=== PATIENT | female | born 1995 | race Caucasian/White ===

== ENCOUNTER 2019-10-04 18:12 | Emergency (ER) | payer OTHER ==
[2019-10-04 19:47] LABS: ABS Basophils 0.1 10^3/ul (0-0.2); ABS Lymphocytes 2.1 10^3/ul (1.0-4.8); ABS Monocytes 0.6 10^3/ul (0-0.8); ABS Neutrophils 4.8 10^3/ul (1.5-7.7); Eosinophil % 0.3 %; Hematocrit 42 % (35-47); Hemoglobin 14.8 g/dL (12.0-16.0); Lymphocyte % 27.9 %; Mean Corpuscular HGB Conc 35 g/dL (31-36); Mean Corpuscular Hemoglobin 31 pg (27-31); Mean Corpuscular Volume 89 fL (80-97); Mean Platelet Volume 8.1 fL (7.4-10.4); Platelet Count 229 10^3/uL (150-450); Red Blood Count 4.71 10^6 /uL (3.70-4.87); Red Cell Distribution Width 13 % (10-15); White Blood Count 7.5 10^3/uL (3.5-10.8)
[2019-10-04 20:08] LABS: ALT 10 U/L (7-52); AST 15 U/L (13-39); Albumin 5.1 g/dL (3.2-5.2); Albumin/Globulin Ratio 1.8 (1-3); Alkaline Phosphatase 66 U/L (34-104); Anion Gap 8 mmol/L (2-11); BUN/Creatinine Ratio 11.5 (8-20); Blood Urea Nitrogen 9 mg/dL (6-24); C Reactive Protein < 1.00 mg/L (<8.01); CO2 Carbon Dioxide 28 mmol/L (22-32); Calcium 10.1 mg/dL (8.6-10.3); Chloride 103 mmol/L (101-111); EGFR African American 111.7 (>60); EGFR Non-African American 92.4 (>60); Globulin 2.8 g/dL (2-4); Glucose 95 mg/dL (70-100); Magnesium 1.9 mg/dL (1.9-2.7); Sodium 139 mmol/L (135-145); Total Protein 7.9 g/dL (6.4-8.9)
[2019-10-04] MEDS ORDERED: NS 0.9% 1000 ML** 1,000 ML IV ONE (20:10)
[2019-10-04] MEDS ORDERED: Meclizine TAB* 12.5 MG PO ONE (20:10)
--- NOTE | 2019-10-04 20:12 | ED ---
Dizziness - HPI Summary HPI Summary: This patient is a 24 y/o female presenting to [facility] c/o dizziness today. 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 She notes she sat down because she felt dizzy and lightheaded and everything felt heavy. Denies room spinning or head spinning sensation. Additionally patient reports a headache since 1200 today. Denies ear pain, tinnitus, sore throat, runny nose, cold symptoms. Patient currently states feeling better but still does not feel safe walking. Patient has never felt these symptoms in the past. PMHx: anxiety. Patient admits to rare alcohol use. Denies tobacco and drug use. Home Medications Medication Instructions Recorded Confirmed Type NK [No Home Medications Reported] 10/04/19 10/04/19 History - History Of Current Complaint Chief Complaint: EDDizziness Stated Complaint: DIZZY/WEAKNESS PER FATHER Time Seen by Provider: 10/04/19 20:05 Hx Obtained From: Patient Onset/Duration: Suddenly Timing: Constant Severity Currently: Moderate Character: Lightheaded, Dizzy Aggravating Factor(s): Nothing Alleviating Factor(s): Nothing Associated Signs And Symptoms: Positive: Other: - POSITIVE: headache. NEGATIVE: ear pain, sore throat, runny nose, cold symptoms.. Negative: Tinnitus, Fever - Allergies/Home Medications Allergies/Adverse Reactions: Allergies Allergy/AdvReac Type Severity Reaction Status Date / Time No Known Allergies Allergy Verified 10/04/19 18:19 Home Medications: Home Medications Meclizine TAB* [Antivert 12.5 TAB*] 25 mg PO TID PRN #15 tab 10/04/19 [Rx] PMH/Surg Hx/FS Hx/Imm Hx Endocrine/Hematology History: Denies: Hx Diabetes Cardiovascular History: Denies: Hx Hypertension Psychiatric History: Reports: Hx Anxiety - Surgical History Surgical History: None Infectious Disease History: No Infectious Disease History: Denies: Traveled Outside the [place] in Last 30 Days - Family History Known Family History: Negative: Cardiac Disease, Hypertension, Diabetes - Social History Alcohol Use: Rare Substance Use Type: Reports: None Smoking Status (MU): Never Smoked Tobacco Review of Systems Negative: Fever Negative: Sore Throat, Ear Ache, Nasal Discharge, Other - NEGATIVE?L Neurological/Mental Status: Other - POSITIVE: lightheadedness Positive: Headache All Other Systems Reviewed And Are Negative: Yes Physical Exam - Summary Physical Exam Summary: VITAL SIGNS: Reviewed. GENERAL: Patient is a well-developed and nourished female who is lying comfortable in the stretcher. Patient is not in any acute respiratory distress. HEAD AND FACE: No signs of trauma. No ecchymosis, hematomas or skull depressions. No sinus tenderness. EYES: PERRLA, EOMI x 2, No injected conjunctiva. No nystagmus. EARS: Hearing grossly intact. Ear canals and tympanic membranes are within normal limits. MOUTH: Oropharynx within normal limits. NECK: Supple, trachea is midline, no adenopathy, no JVD, no carotid bruit, no c- spine tenderness, neck with full ROM. CHEST: Symmetric, no tenderness at palpation LUNGS: Clear to auscultation bilaterally. No wheezing or crackles. CVS: Regular rate and rhythm, S1 and S2 present, no murmurs or gallops appreciated. ABDOMEN: Soft, non-tender. No signs of distention. No rebound, no guarding, and no masses palpated. Bowel sounds are normal. EXTREMITIES: FROM in all major joints, no edema, no cyanosis or clubbing. NEURO: Alert and oriented x 3. No acute neurological deficits. Speech is normal and follows commands. SKIN: Dry and warm Triage Information Reviewed: Yes Vital Signs On Initial Exam: Initial Vitals Temp Pulse Resp BP Pulse Ox 98.4 F 90 16 133/83 99 10/04/19 18:16 10/04/19 18:16 10/04/19 18:16 10/04/19 18:16 10/04/19 18:16 Vital Signs Reviewed: Yes Procedures - Sedation Patient Received Moderate/Deep Sedation with Procedure: No Diagnostics - Vital Signs Vital Signs Temp Pulse Resp BP Pulse Ox 10/04/19 18:16 98.4 F 90 16 133/83 99 - Laboratory Lab Results: Lab Results 10/04/19 10/04/19 Range/Units 19:38 19:38 WBC 7.5 (3.5-10.8) 10^3/uL RBC 4.71 (3.70-4.87) 10^6 /uL Hgb 14.8 (12.0-16.0) g/dL Hct 42 (35-47) % MCV 89 (80-97) fL MCH 31 (27-31) pg MCHC 35 (31-36) g/dL RDW 13 (10-15) % Plt Count 229 (150-450) 10^3/uL MPV 8.1 (7.4-10.4) fL Neut % (Auto) 63.6 % Lymph % (Auto) 27.9 % [place] % (Auto) 7.5 % Eos % (Auto) 0.3 % Baso % (Auto) 0.7 % Absolute Neuts (auto) 4.8 (1.5-7.7) 10^3/ul Absolute Lymphs (auto) 2.1 (1.0-4.8) 10^3/ul Absolute Monos (auto) 0.6 (0-0.8) 10^3/ul Absolute Eos (auto) 0.0 (0-0.6) 10^3/ul Absolute Basos (auto) 0.1 (0-0.2) 10^3/ul Absolute Nucleated RBC 0.0 10^3/ul Nucleated RBC % 0.0 Lactic Acid 1.1 (0.5-2.0) mmol/L Result Diagrams: 10/04/19 19:38 10/04/19 19:38 Lab Statement: Any lab studies that have been ordered have been reviewed, and results considered in the medical decision making process. - EKG 18:22 Cardiac Rate: NL - at 87 bpm EKG Rhythm: Sinus Rhythm Summary of EKG Findings: EKG at 1822 shows sinus rhythm at a rate of [address] elevations. This EKG was interpreted and reviewed by ED physician. Re-Evaluation - Re-Evaluation First Eval Re-Evaluation Time: 20:38 Comment: Patient ambulating around the ED without any difficulty. Second Eval Re-Evaluation Time: 21:09 Comment: Reviewed results with patient. Will discharge patient home with follow up from PCP. Dizzy Course/Dx - Course Assessment/Plan: This patient is a 24 y/o female presenting to [facility] c/o dizziness today. 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 She notes she sat down because she felt dizzy and lightheaded and everything felt heavy. Denies room spinning or head spinning sensation. Additionally patient reports a headache since 1200 today. Denies ear pain, tinnitus, sore throat, runny nose, cold symptoms. Patient currently states feeling better but still does not feel safe walking. Patient has never felt these symptoms in the past. PMHx: anxiety. Patient admits to rare alcohol use. Denies tobacco and drug use. In the ED course the patient was placed in a surveillance system monitor, IV access was obtained, IV fluids were started. Past medical records reviewed. Blood test w/o a significant abnormality, UA is negative for UTI. Influenza A and B is negative. Rapid strep is negative. In the ED course the patient was given IV fluids and Meclizine. The patients symptoms improved. At this time the patient was ambulated without any dizziness. At this point, I discussed all the findings and test results with the patient. Patient was instructed to return to the emergency room immediately if any of the symptoms return or worsen. Plan of care was discussed with the patient and the patient understands and agrees. All questions were answered at patient satisfaction. Patient understands and agrees. Neurological exam before discharge: Patient is alert and oriented x 3. No acute neurological deficits. Patient's vital signs are stable. Patient is to follow up with her PCP in the next 2 3 days. She understands and agrees. The plan of care was discussed with the patient and the patient understands and agrees with the plan of care. All questions were answered at patient satisfaction. There were no further complaints or concerns. - Diagnoses Provider Diagnoses: Dizziness Discharge ED - Sign-Out/Discharge Documenting (check all that apply): Patient Departure - Discharge home - Discharge Plan Condition: Stable Disposition: HOME Prescriptions: Meclizine TAB* [Antivert 12.5 TAB*] 25 mg PO TID PRN #15 tab PRN Reason: Dizziness Patient Education Materials: Vertigo (ED), Dizziness (ED) Referrals: [facility] [Outside] Additional Instructions: FOLLOW UP WITH YOUR PRIMARY CARE PROVIDER IN 2-3 DAYS. RETURN TO THE ED FOR ANY NEW OR WORSENING SYMPTOMS. - Billing Disposition and Condition Condition: STABLE Disposition: Home - Attestation Statements Document Initiated by Scribe: Yes Documenting Scribe: Lizz Gallardo Provider For Whom Scribe is Documenting (Include Credential): Jas Foreman MD Scribe Attestation: Lizz Huynh, scribed for Jas Foreman MD on 10/05/19 at 1522. Scribe Documentation Reviewed: Yes Provider Attestation: The documentation as recorded by the sheelaibeLizz accurately reflects the service I personally performed and the decisions made by me, Jas Foreman MD Status of [place] Document: Viewed
[2019-10-04 20:14] LABS: HCG Pregnancy < 0.60 mIU/mL
[2019-10-04 20:22] LABS: TSH (Thyroid Stimulating Horm) 1.76 mcIU/mL (0.34-5.60)
[2019-10-04 20:31] LABS: Urine Appearance Clear; Urine Bilirubin Negative (Negative); Urine Blood Negative (Negative); Urine Color Straw; Urine Glucose Negative (Negative); Urine Ketones Negative (Negative); Urine Nitrite Negative (Negative); Urine Protein Negative (Negative); Urine Specific Gravity 1.003 (1.010-1.030); Urine Urobilinogen Negative (Negative)
[2019-10-04 20:55] LABS: Rapid Strep Molecular Negative (Negative)
[2019-10-04 21:03] LABS: Influenza A Molecular Negative (Negative); Influenza B Molecular Negative (Negative)
[2019-10-04 21:16] VITALS: BP 104/58
== END 2019-10-04 21:15 | disposition home or self-care (01) ==
LOC: ED 18:12
DX: R42 Dizziness and giddiness (principal); R51 Headache
CPT/HCPCS: 36415; 80053; 81003; 83605; 83735; 84443; 84484; 84702; 85025; 86140; 87651; 93005; 96360; 99282; A9270-GY